=== PATIENT | male | born 1965 | race Caucasian/White ===

== ENCOUNTER 2021-11-03 15:08 | Emergency (ER) | payer BC ==
[2021-11-03] MEDS ORDERED: fentaNYL 50 MCG/ML SDV IVPUSH ONE (15:35)
[2021-11-03] MEDS ORDERED: Sodium Chloride 0.9% 2.5 ML Syringe FLUSH PRN (15:35)
[2021-11-03] MEDS ORDERED: Sodium Chloride 0.9% 1,000 ML IV ONE (15:35)
[2021-11-03] MEDS ORDERED: Sodium Chloride 0.9% 10 ML Syringe FLUSH PRN (15:35)
[2021-11-03] MEDS ORDERED: Ketorolac 15 MG/ML SDV IVPUSH ONE (15:35)
[2021-11-03] MEDS ORDERED: Ondansetron 4 MG/2 ML SDV IVPUSH ONE (15:35)
--- NOTE | 2021-11-03 15:57 | EDM.PDOC ---
ED HPI GENERAL MEDICAL PROBLEM - General Chief Complaint: Abdominal Pain Stated Complaint: KIDNEY STONES Time Seen by Provider: 11/03/21 15:32 - History of Present Illness INITIAL COMMENTS - FREE TEXT/NARRATIVE: HISTORY AND PHYSICAL: History of present illness: This is a 56-year-old gentleman with a history significant for kidney stones approximately 10 years ago who presents ER today complaining of pain to his left lower quadrant that started earlier today and has been constant. Patient ports pain increases when he moves around. Patient reports no recent fevers, shakes, chills. Patient reports nausea with no vomiting or diarrhea. Patient has any chest pain or shortness of breath. Patient reports no pain in his flank which is where the pain was when he had his prior kidney stone. Patient has any hematuria, dysuria, frequency, urgency. Review of systems: As per history of present illness and below otherwise all systems reviewed and negative. Past medical history: As per history of present illness and as reviewed below otherwise noncontributory. Surgical history: As per history of present illness and as reviewed below otherwise noncontributory. Social history: No reported history of drug abuse. Family history: As per history of present illness and as reviewed below otherwise noncontributory. Physical exam: This patient was seen and evaluated during the 2019 SARS-CoV-2 novel coronavirus pandemic period. Community viral transmission is ongoing at time of this encounter and the emergency department is operating under pandemic response procedures. Constitutional: Patient is oriented to person, place, and time. Appears well- developed and well-nourished. No distress. HEENT: Moist mucous membranes Head: Normocephalic and atraumatic Eyes: Right eye exhibits no discharge. Left eye exhibits no discharge. No scleral icterus Neck: Normal range of motion. No tracheal deviation present. Cardiovascular: Normal rate and regular rhythm. Pulmonary: Effort normal, no respiratory distress. Abd: Soft, nondistended, no rebound/guarding, no psoas or obturator signs, no tenderness at Mcberney's point, no Bourgeois's sign. Pt does not present with an exam that would be consistent with an acute surgical abdomen at this time. No tenderness to palpation to the back. Patient has tenderness palpation of his left lower quadrant. Musculoskeletal: Normal range of motion Neurologic: Alert and oriented to person, place and time. Skin: Avis, warm and dry. Psychiatric: Normal mood and affect. Behavior is normal. Judgment and thought content normal. Nursing note and vital signs have been reviewed Diagnostics: CT scan of the abdomen pelvis: Patient has a kidney stone in the renal pelvis without evidence of obstruction. Patient does show evidence of sigmoid diverticulitis without perforation or abscess. CBC normal CMP normal Therapeutics: Toradol 15 mg IV followed by fentanyl 50 mg IV and Zofran. Patient will get started on Flagyl and Cipro to treat diverticulitis. I had a long discussion with the patient regarding long-term management of his diverticulitis and dietary changes. Patient will be discharged home with a prescription for Flagyl 500 mg 3 times daily x10 days as well as Cipro 500 mg twice daily x10 days as well as ibuprofen and Ultram and Zofran. Assessment and plan: 56-year-old gentleman who presents ER today complaining of left lower quadrant abdominal pain. Patient will have a CT scan of his abdomen pelvis performed as well as labs with a CBC, CMP, urinalysis. Patient will get Toradol, Zofran and fentanyl to help with pain. Patient will get started on Flagyl and Cipro to treat diverticulitis. I had a long discussion with the patient regarding long-term management of his diverticulitis and dietary changes. Patient will be discharged home with a prescription for Flagyl 500 mg 3 times daily x10 days as well as Cipro 500 mg twice daily x10 days as well as ibuprofen and Ultram and Zofran. Patient is nontoxic-appearing at this time and reports his pain is much better. Patient prefers outpatient trial of p.o. antibiotics. Patient has good access to health care and will return to the ER if he has any new or concerning symptoms. Definitive disposition and diagnosis as appropriate pending reevaluation and review of above. LUQ Pain Score (Numeric/FACES): 6 - Related Data Allergies Allergy/AdvReac Type Severity Reaction Status Date / Time Penicillins Allergy Cannot Verified 11/03/21 15:13 Remember Home Meds: Home Meds Ibuprofen 600 mg PO Q6HR PRN #30 tablet 11/03/21 [Rx] Levofloxacin [Levaquin] 500 mg PO DAILY #10 tablet 11/03/21 [Rx] Ondansetron [Zofran ODT] 4 mg PO Q6H PRN #12 tab.dis 11/03/21 [Rx] metroNIDAZOLE [Flagyl] 500 mg PO Q8H #30 tab 11/03/21 [Rx] traMADol [Ultram] 50 mg PO Q6H PRN #12 tab 11/03/21 [Rx] Past Medical History Cardiovascular History: Reports: High Cholesterol, Hypertension Other Cardiovascular History: >6 mo since prescribed medications for cholesterol or BP r/t insurance change Genitourinary History: Reports: Other (See Below) Other Genitourinary History: Nephrolithiasis Musculoskeletal History: Reports: Gout Psychiatric History: Reports: Depression - Infectious Disease History Infectious Disease History: Reports: Chicken Pox, Mononucleosis Social & Family History - Family History Endocrine/Metabolic: Reports: Diabetes, type II Oncologic: Reports: Lung - Caffeine Use Caffeine Use: Reports: Coffee - Recreational Drug Use Recreational Drug Use: No ED ROS GENERAL - Review of Systems Review Of Systems: See Below ED EXAM, GENERAL - Physical Exam Exam: See Below Course - Vital Signs Last Recorded V/S: Last Vital Signs Temp 97.3 F 11/03/21 15:13 Pulse 103 H 11/03/21 15:13 Resp 18 11/03/21 15:13 BP 187/105 H 11/03/21 15:13 Pulse Ox 98 11/03/21 15:13 - Orders/Labs/Meds Orders: Active Orders 24 hr Category Date Time Status UA W/RODOLFO RFLX IF INDICATED [URIN] Stat Lab 11/03/21 15:36 Ordered Sodium Chloride 0.9% [Saline Flush] Med 11/03/21 15:35 Active 10 ml FLUSH ASDIRECTED PRN Sodium Chloride 0.9% [Saline Flush] Med 11/03/21 15:35 Active 2.5 ml FLUSH ASDIRECTED PRN Saline Lock Insert [OM.PC] Stat Oth 11/03/21 15:35 Ordered Medication Orders Sodium Chloride (Sodium Chloride 0.9% 10 Ml Syringe) 10 ml FLUSH ASDIRECTED PRN PRN Reason: Keep Vein Open Sodium Chloride (Sodium Chloride 0.9% 2.5 Ml Syringe) 2.5 ml FLUSH ASDIRECTED PRN PRN Reason: Keep Vein Open Labs: Laboratory Tests 11/03/21 11/03/21 Range/Units 15:37 15:37 WBC 7.74 (4.0-11.0) K/uL RBC 4.94 (4.50-5.90) M/uL Hgb 15.4 (13.0-17.0) g/dL Hct 43.9 (38.0-50.0) % MCV 88.9 (80.0-98.0) fL MCH 31.2 (27.0-32.0) pg MCHC 35.1 (31.0-37.0) g/dL RDW Std Deviation 41.6 (28.0-62.0) fl RDW Coeff of Tania 13 (11.0-15.0) % Plt Count 157 (150-400) K/uL MPV 10.50 (7.40-12.00) fL Neut % (Auto) 65.4 (48.0-80.0) % Lymph % (Auto) 25.6 (16.0-40.0) % Leon % (Auto) 7.2 (0.0-15.0) % Eos % (Auto) 1.3 (0.0-7.0) % Baso % (Auto) 0.5 (0.0-1.5) % Neut # (Auto) 5.1 (1.4-5.7) K/uL Lymph # (Auto) 2.0 (0.6-2.4) K/uL Leon # (Auto) 0.6 (0.0-0.8) K/uL Eos # (Auto) 0.1 (0.0-0.7) K/uL Baso # (Auto) 0.0 (0.0-0.1) K/uL Nucleated RBC % 0.0 /100WBC Nucleated RBCs # 0 K/uL Sodium 142 (136-148) mmol/L Potassium 3.4 L (3.5-5.1) mmol/L Chloride 104 (98-107) mmol/L Carbon Dioxide 25.8 (21.0-32.0) mmol/L BUN 15 (7.0-18.0) mg/dL Creatinine 1.2 (0.8-1.3) mg/dL Est Cr Clr Drug Dosing 76.34 mL/min Estimated GFR (MDRD) > 60.0 ml/min Glucose 132 H (74-106) mg/dL Calcium 8.9 (8.5-10.1) mg/dL Total Bilirubin 0.7 (0.2-1.0) mg/dL AST 18 (15-37) IU/L ALT 39 (14-63) IU/L Alkaline Phosphatase 83 (46-116) U/L Total Protein 8.0 (6.4-8.2) g/dL Albumin 3.2 L (3.4-5.0) g/dL Globulin 4.8 H (2.6-4.0) g/dL Albumin/Globulin Ratio 0.7 L (0.9-1.6) Lipase 203 (73-393) U/L Meds: Medications Generic Name Dose Route Start Last Admin Trade Name Freq PRN Reason Stop Dose Admin Sodium Chloride 10 ml 11/03/21 15:35 Sodium Chloride 0.9% 10 Ml Syringe FLUSH ASDIRECTED PRN Keep Vein Open Sodium Chloride 2.5 ml 11/03/21 15:35 Sodium Chloride 0.9% 2.5 Ml Syringe FLUSH ASDIRECTED PRN Keep Vein Open Discontinued Medications Generic Name Dose Route Start Last Admin Trade Name Freq PRN Reason Stop Dose Admin Ciprofloxacin 500 mg 11/03/21 16:49 Ciprofloxacin 500 Mg Tab PO 11/03/21 16:50 ONETIME ONE Fentanyl 50 mcg 11/03/21 15:35 11/03/21 16:12 Fentanyl 50 Mcg/Ml Sdv IVPUSH 11/03/21 15:36 50 mcg ONETIME ONE Administration Sodium Chloride 1,000 mls @ 999 mls/hr 11/03/21 15:35 11/03/21 16:11 Normal Saline IV 11/03/21 16:35 999 mls/hr .Bolus ONE Administration Ketorolac Tromethamine 15 mg 11/03/21 15:35 11/03/21 16:11 Ketorolac 15 Mg/Ml Sdv IVPUSH 11/03/21 15:36 15 mg ONETIME ONE Administration Metronidazole 500 mg 11/03/21 16:50 Metronidazole 250 Mg Tab PO 11/03/21 16:51 ONETIME ONE Ondansetron HCl 4 mg 11/03/21 15:35 11/03/21 16:12 Ondansetron 4 Mg/2 Ml Sdv IVPUSH 11/03/21 15:36 4 mg ONETIME ONE Administration Departure - Departure Time of Disposition: 16:59 Disposition: Home, Self-Care 01 Condition: Good Clinical Impression: Diverticulitis - Discharge Information Instructions: Diverticulitis Forms: ED Department Discharge Additional Instructions: You were seen and evaluated in ER today secondary to pain to your left lower abdomen. The CT scan that we obtained revealed that you do have a kidney stone such as been hanging out in your left kidney which is not causing the discomfort. You do however have signs of acute sigmoid diverticulitis on the CT scan. This is treated with dietary changes as we have discussed. You will also be started on Flagyl 500 mg three times a day and ciprofloxacin 500 mg twice a day for 10 days. You will also be given a prescription for ibuprofen and Ultram for pain and Zofran to help you nausea. Please return to the ER if your pain worsens, you have vomiting or high fevers. Please make an appointment to follow-up with your doctor in the next week for reevaluation. You will need an outpatient colonoscopy after your diverticulitis has been treated. The following information is given to patients seen in the emergency department who are being discharged to home. This information is to outline your options for follow-up care. We provide all patients seen in our emergency department with a follow-up referral. The need for follow-up, as well as the timing and circumstances, are variable depending upon the specifics of your emergency department visit. If you don't have a primary care physician on staff, we will provide you with a referral. We always advise you to contact your personal physician following an emergency department visit to inform them of the circumstance of the visit and for follow-up with them and/or the need for any referrals to a consulting specialist. The emergency department will also refer you to a specialist when appropriate. This referral assures that you have the opportunity for follow-up care with a specialist. All of these measure are taken in an effort to provide you with optimal care, which includes your follow-up. Under all circumstances we always encourage you to contact your private physician who remains a resource for coordinating your care. When calling for follow-up care, please make the office aware that this follow-up is from your recent emergency room visit. If for any reason you are refused follow-up, please contact the [facility] Emergency Department at and asked to speak to the emergency department charge nurse. [facility] [address] [place] [id number] [facility] [address] [place] [id number] Sepsis Event Note (ED) - Evaluation Sepsis Screening Result: No Definite Risk - Focused Exam Vital Signs: Vital Signs Temp Pulse Resp BP Pulse Ox 11/03/21 15:13 97.3 F 103 H 18 187/105 H 98 - My Orders Last 24 Hours: My Active Orders 11/03/21 15:35 Sodium Chloride 0.9% [Saline Flush] 10 ml FLUSH ASDIRECTED PRN Sodium Chloride 0.9% [Saline Flush] 2.5 ml FLUSH ASDIRECTED PRN Saline Lock Insert [OM.PC] Stat 11/03/21 15:36 UA W/RODOLFO RFLX IF INDICATED [URIN] Stat - Assessment/Plan Last 24 Hours: My Active Orders 11/03/21 15:35 Sodium Chloride 0.9% [Saline Flush] 10 ml FLUSH ASDIRECTED PRN Sodium Chloride 0.9% [Saline Flush] 2.5 ml FLUSH ASDIRECTED PRN Saline Lock Insert [OM.PC] Stat 11/03/21 15:36 UA W/RODOLFO RFLX IF INDICATED [URIN] Stat
[2021-11-03 16:31] LABS: BLOOD UREA NITROGEN,BUN 15 mg/dL (7.0-18.0); CARBON DIOXIDE,CO2 25.8 mmol/L (21.0-32.0); CHLORIDE,CL 104 mmol/L (98-107); GLUCOSE RANDOM 132 mg/dL (74-106); LIPASE 203 U/L (73-393); POTASSIUM,K 3.4 mmol/L (3.5-5.1); SODIUM,NA 142 mmol/L (136-148)
--- NOTE | 2021-11-03 16:38 | CT ---
INDICATION: Left lower quadrant abdominal pain. COMPARISON: None. TECHNIQUE: CT abdomen and pelvis without intravenous or oral contrast; coronal and sagittal reformats. FINDINGS: Acute diverticulitis sigmoid colon at its junction with the descending colon. No evidence of intra-abdominal abscess. No pneumoperitoneum or intestinal obstruction. Nonobstructing renal calculi lower pole calices left kidney. No abnormal intra pulmonary nodular densities through the lung bases. No evidence of pleural effusion. Normal size cardiac silhouette without any evidence of pericardial effusion. Mild diffuse fatty infiltration of the liver. No focal hepatic or splenic pathology. No pancreatic pathology. Gallbladder is unremarkable. No adrenal pathology. Right kidney is unremarkable. No retroperitoneal lymphadenopathy. Normal appendix. IMPRESSION: 1. Acute diverticulitis sigmoid colon without any evidence of abscess. 2. Nonobstructing renal calculi lower pole calyx left kidney. 3. Fatty infiltration of the liver. 4. Normal appendix. Please note that all CT scans at this facility use dose modulation, iterative reconstruction, and/or weight-based dosing when appropriate to reduce radiation dose to as low as reasonably achievable. Dictated by Maritza Blount MD @ 11/03/2021 4:36:50 PM (Electronically Signed)
[2021-11-03] MEDS ORDERED: Ciprofloxacin 500 MG Tab PO ONE (16:49)
[2021-11-03] MEDS ORDERED: metroNIDAZOLE 250 MG Tab PO ONE (16:50)
== END 2021-11-03 17:45 | disposition home or self-care (01) ==
LOC: MW.ED 15:08
DX: K57.32 Diverticulitis of large intestine without perforation or abscess without bleeding (principal); E78.00 Pure hypercholesterolemia, unspecified; I10 Essential (primary) hypertension; Z88.0 Allergy status to penicillin; Z79.899 Other long term (current) drug therapy
CPT/HCPCS: 36415; 74176; 80053; 83690; 85025; 96374; 96375; 99284; A9270; J1885; J2405; J3010; J7030

== ENCOUNTER 2022-07-25 12:32 | Day surgery (SDC) | payer BC ==
[~2022-07-25 12:32] MED LIST: Propofol 200 MG/20 ML SDV ONE; fentaNYL 100 MCG/2 ML SDV ONE
[2022-07-25] MEDS ORDERED: Lactated Ringers 1,000 ML IV SCH (13:30)
[2022-07-25] MEDS ORDERED: Propofol 200 MG/20 ML SDV ONE (15:35)
[2022-07-25] MEDS ORDERED: Metoprolol Tartrate 5 MG/5 ML SDV ONE (15:40)
[2022-07-25] MEDS ORDERED: Lidocaine 2% 5 ML SDV ONE (16:09)
== END 2022-07-25 16:35 | disposition home or self-care (01) ==
LOC: MW.SDS 12:32
PROVIDERS: ATTEND Surgery
DX: Z12.11 Encounter for screening for malignant neoplasm of colon (principal); D12.6 Benign neoplasm of colon, unspecified; K57.30 Diverticulosis of large intestine without perforation or abscess without bleeding; I10 Essential (primary) hypertension; F17.210 Nicotine dependence, cigarettes, uncomplicated; F41.9 Anxiety disorder, unspecified; F32.A Depression, unspecified; E78.1 Pure hyperglyceridemia; Z86.010 Personal history of colon polyps; Z88.0 Allergy status to penicillin; Z79.899 Other long term (current) drug therapy
CPT/HCPCS: 45385; J2704; J3010; J3490; J7120; 00812